=== PATIENT | female | born 1960 | race Caucasian/White ===

== ENCOUNTER 2017-03-02 12:19 | Observation (INO) | payer BC ==
[~2017-03-02] VITALS: Ht 157.5 cm; Wt 79.5 kg
[2017-03-02 12:20] VITALS: BP 136/85; PULSE 64; RESP 16; TEMP 98.4; O2SAT 97
[2017-03-02 13:00] LABS: AUTOMATED NEUTROPHIL # 2.8 TH/MM3 (1.8-7.7); BASOPHIL # 0.1 TH/MM3 (0-0.2); BASOPHIL % 1.3 % (0.0-2.0); EOSINOPHIL # 0.2 TH/MM3 (0-0.4); HEMATOCRIT 37.5 % (35.0-46.0); HEMO FLAGS DIFF FINAL; LYMPH % 40.8 % (9.0-44.0); LYMPHOCYTE # 2.6 TH/MM3 (1.0-4.8); MEAN CELL VOLUME 92.6 FL (80.0-100.0); MEAN CORPUSCULAR HEMOGLOBIN 31.8 PG (27.0-34.0); MEAN CORPUSCULAR HGB CONC 34.3 % (32.0-36.0); MONO % 9.9 % (0.0-8.0); PLATELET COUNT 311 TH/MM3 (150-450); RED BLOOD COUNT 4.05 MIL/MM3 (4.00-5.30); RED CELL DISTRIBUTION WIDTH 13.3 % (11.6-17.2); WHITE BLOOD COUNT 6.3 TH/MM3 (4.0-11.0)
--- NOTE | 2017-03-02 13:12 | RADRPT ---
EXAM DATE/TIME: 03/02/2017 12:58 [facility] COMPARISON: No previous studies available for comparison. INDICATIONS : Chest pains midsternal, with pressure and shortness of breath. MEDICAL HISTORY : None. SURGICAL HISTORY : None. ENCOUNTER: Initial ACUITY: 4 - 6 days PAIN SCORE: 6/10 LOCATION: Chest FINDINGS: PA and lateral views of the chest demonstrates a small focal infiltrate in the right middle lobe. Oth erwise, the lungs are clear. There are no effusions or pulmonary edema.. The cardiomediastinal conto urs are unremarkable. Osseous structures are intact. CONCLUSION: Focal small infiltrate in the right middle lobe. Scott Siddiqui MD on March 02, 2017 at 13:10 Board Certified Radiologist. This report was verified electronically.
[2017-03-02 13:30] LABS: ANION GAP 7 MEQ/L (5-15); BLOOD UREA NITROGEN 17 MG/DL (7-18); CHLORIDE 106 MEQ/L (98-107); GLOMERULAR FILTRATION RATE 76 ML/MIN (>89); POTASSIUM 4.1 MEQ/L (3.5-5.1); SODIUM (NA) 140 MEQ/L (136-145)
[2017-03-02 13:34] LABS: CREATINE KINASE 561 U/L (26-192)
[2017-03-02] MEDS ORDERED: PHEN-523 PO (13:40)
[2017-03-02] MEDS ORDERED: ASPIRIN 81 MG CHEW TAB CHEW ONE (13:45)
[2017-03-02 14:00] LABS: CKMB 3.5 NG/ML (0.5-3.6)
--- NOTE | 2017-03-02 14:29 | PD ---
HPI Chief Complaint: Cardiac Complaint Time Seen by Provider: 14:20 Travel History International Travel<30 days: No Contact w/Intl Traveler<30days: No Traveled to known affect area: No History of Present Illness HPI 57-year-old female with PMH of epilepsy presents to the ED for evaluation of 2 week history of episodic, intermittent chest pain. She states that the 3 episodes have occurred when she is exerting herself, such as walking on the treadmill. She describes the pain as sudden onset, sharp, rated 6/10 over the central left chest. She denies associated palpitations, shortness of breath, nausea, vomiting, diaphoresis. The pain lasts the duration of her exercise and then resolves spontaneously. She states that she is otherwise been feeling well. The patient denies familial history of FL. She smoked only a few years old she was in college. She had a stress test over 20 years ago. She is followed by Dr. Shepard. She states her last seizure was over 25 years ago. PFSH Past Medical History High Cholesterol: Yes Seizures: Yes Past Surgical History Other Surgery: Yes (SKIN GRAFT) Social History Alcohol Use: Yes (4 GLASSES WINE/WEEK) Tobacco Use: No Allergies-Medications (Allergen,Severity, Reaction): Coded Allergies: No Known Allergies (Unverified , 03/02/17) Reported Meds & Prescriptions Reported Meds & Active Scripts Active Reported Phenobarbital 30 Mg Tab 90 Mg PO HS Review of Systems Except as stated in HPI: all other systems reviewed are Neg Physical Exam Narrative GENERAL: Well-nourished, well-developed pleasant white female in no acute distress. SKIN: Focused skin assessment warm/dry. HEAD: Normocephalic. EYES: No scleral icterus. No injection or drainage. NECK: Supple, trachea midline. No JVD or lymphadenopathy. CARDIOVASCULAR: Regular rate and rhythm without murmurs, gallops, or rubs. CHEST: Nontender throughout without deformity or crepitus. RESPIRATORY: Breath sounds clear and equal bilaterally. No accessory muscle use. GASTROINTESTINAL: Abdomen soft, non-tender, nondistended. Active bowel sounds. MUSCULOSKELETAL: No cyanosis, or edema. BACK: Nontender without obvious deformity. No CVA tenderness. Data Data Last Documented VS Vital Signs Date Time Temp Pulse Resp B/P (MAP) Pulse Ox O2 Delivery O2 Flow Rate FiO2 03/02/17 13:39 Room Air 03/02/17 13:39 03/02/17 12:20 98.4 64 16 97 Orders Orders Electrocardiogram (03/02/17 12:39) Complete Blood Count With Diff (03/02/17 12:39) Basic Metabolic Panel (Bmp) (03/02/17 12:39) Ckmb (Isoenzyme) Profile (03/02/17 12:39) Troponin I (03/02/17 12:39) Iv Access Insert/Monitor (03/02/17 12:39) Ecg Monitoring (03/02/17 12:39) Oxygen Administration (03/02/17 12:39) Oximetry (03/02/17 12:39) Chest, Pa & Lat (03/02/17 12:39) CKMB (03/02/17 12:50) CKMB% (03/02/17 12:50) Aspirin Chew (Aspirin Chew) (03/02/17 13:45) Admit Order (Ed Use Only) (03/02/17 14:41) Labs Laboratory Tests Test 03/02/17 12:50 White Blood Count 6.3 TH/MM3 Red Blood Count 4.05 MIL/MM3 Hemoglobin 12.9 GM/DL Hematocrit 37.5 % Mean Corpuscular Volume 92.6 FL Mean Corpuscular Hemoglobin 31.8 PG Mean Corpuscular Hemoglobin Concent 34.3 % Red Cell Distribution Width 13.3 % Platelet Count 311 TH/MM3 Mean Platelet Volume 7.2 FL Neutrophils (%) (Auto) 45.0 % Lymphocytes (%) (Auto) 40.8 % Monocytes (%) (Auto) 9.9 % Eosinophils (%) (Auto) 3.0 % Basophils (%) (Auto) 1.3 % Neutrophils # (Auto) 2.8 TH/MM3 Lymphocytes # (Auto) 2.6 TH/MM3 Monocytes # (Auto) 0.6 TH/MM3 Eosinophils # (Auto) 0.2 TH/MM3 Basophils # (Auto) 0.1 TH/MM3 CBC Comment DIFF FINAL Differential Comment Blood Urea Nitrogen 17 MG/DL Creatinine 0.78 MG/DL Random Glucose 89 MG/DL Calcium Level 8.9 MG/DL Sodium Level 140 MEQ/L Potassium Level 4.1 MEQ/L Chloride Level 106 MEQ/L Carbon Dioxide Level 27.0 MEQ/L Anion Gap 7 MEQ/L Estimat Glomerular Filtration Rate 76 ML/MIN Total Creatine Kinase 561 U/L Creatine Kinase MB 3.5 NG/ML Creatine Kinase MB % 0.6 % Troponin I LESS THAN 0.02 NG/ML MDM Medical Decision Making Medical Screen Exam Complete: Yes Emergency Medical Condition: Yes Differential Diagnosis Angina versus musculoskeletal pain versus GERD versus ACS versus other Narrative Course 57-year-old female with PMH of epilepsy presents to the ED for evaluation of 2 week history of episodic, intermittent chest pain. She states that the 3 episodes have occurred when she is exerting herself, such as walking on the treadmill. She describes the pain as sudden onset, sharp, rated 6/10 over the central left chest. She denies associated palpitations, shortness of breath, nausea, vomiting, diaphoresis. The pain lasts the duration of her exercise and then resolves spontaneously. She states that she is otherwise been feeling well. The patient denies familial history of FL. She smoked only a few years old she was in college. She had a stress test over 20 years ago. She states her last seizure was over [address] Shepard. Vitals reviewed. Physical exam reveals a nontoxic-appearing white female in no acute distress. No appreciable M/R/G. Chest CT AB. Abdomen soft and nontender. No lower extremity edema. EKG rate 57, sinus bradycardia. OH interval 178, QRS 91, QTc 412 ms. Normal axis. No ST changes. Reviewed by Dr. Ledezma CXR:Small right infiltrate per radiology read. Cardiac enzymes negative 1 No concerning abnormalities in CBC or CMP. I doubt pneumonia in this patient with no cough, cold symptoms, fevers. I discussed the results of the workup with the patient. I recommended admission to the chest pain center for serial enzymes, EKGs and possible stress test. The patient is agreeable to this plan. Please see chest pain center notes for disposition. Paula Nguyen Mar 02, 2017 14:29
--- NOTE | 2017-03-02 16:48 | HHI.DCPOC ---
Discharge Care Plan Diagnosis: (1) Chest pain, atypical Goals to Promote Your Health * To prevent worsening of your condition and complications * To maintain your health at the optimal level Directions to Meet Your Goals Take your medications as prescribed Follow your dietary instruction Follow activity as directed Keep your appointments as scheduled Take your immunizations and boosters as scheduled If your symptoms worsen call your PCP, if no PCP go to Urgent Care Center or Emergency Room Smoking is Dangerous to Your Health. Avoid second hand smoke Call the 24-hour hour crisis hotline for domestic abuse at [facility] [place] Mar 02, 2017 16:48
--- NOTE | 2017-03-02 16:51 | MH ---
cc: ANTONIO YU MD DATE OF ADMISSION 03/02/2017 ADMISSION DIAGNOSIS Chest pain HISTORY OF PRESENT ILLNESS Mrs. Shearer is a delightful 57-year-old female who has no past medical history of any cardiac complaints. She has a history of a seizure disorder from teenage years and has not had a seizure in 25 years on phenobarbital. She is no other medications on a regular basis. About two weeks ago, she started back on exercise in a fitness program and did about an hour of vigorous exercises including treadmill and elliptical. She noticed an anterior somewhat left chest discomfort which felt like an ache or slight pressure. It persisted for hours beyond her exercise at that point. She did not notice it was tender. It did not hurt with a deep breath. She cannot tell if it was deep inside or on the surface. This went away. In the past two weeks, she has continued to do some exercise, especially just walking briskly at home. Twice she has had episodes of left-sided chest discomfort that began lasts for hours. The third one was this morning at about 05:30 when she walked and 10 minutes into her walk, she noticed this left side discomfort which then lasted for perhaps several hours. It went away on its own, but she feels slightly tight in her chest like she is anxious. She has not had any falls or injuries otherwise. She has not lifted any heavy weights. She has been a busy, active person most all of her life, but has been in and out of fitness type of things. She has history of borderline cholesterol. She said her blood pressure is generally on the low side and not high. She denies diabetes or cigarette smoking and there is no family history of ASHD. She has generally been a healthy person. She has recently come back from living in [place] with her for 17 years. They now live in [place]. She is followed by Dr. Lamonte Shepard, her primary doctor. At this point, she also has had some history of gastroesophageal reflux disease, but it does not feel like this. She is not sure what this is. She has not been sick in any way. PAST MEDICAL HISTORY 1. The seizure disorder with generalized seizures and has had three in her life but has not had one in 25 years on phenobarbital. 2. She has history of questionable borderline cholesterol, but apparently has never required medication treatment. PAST SURGICAL HISTORY Only surgical history of a skin graft. SOCIAL HISTORY She uses about four glasses of wine per week. She has never smoked, other than a little bit in college. ALLERGIES She has no known allergies. MEDICATIONS Only known medicine is phenobarbital 30 mg tablets 90 mg at bedtime. FAMILY HISTORY No family history of heart disease. REVIEW OF SYSTEMS: No history of HEENT problems. She has the history of seizure disorder, well treated. There has been no pulmonary symptoms. She has had no fever or cough. She has had no cardiac symptoms in the past. She has the history of intermittent gastroesophageal reflux disease in the past six months. This is not severe. She has had no other abdominal symptoms. She is postmenopausal. Her peripheral vascular system is negative as she has had no swelling or tenderness in her calves and no swelling. PHYSICAL EXAMINATION VITAL SIGNS: Normal on admission. Pulse 64. HEENT: Eyes are clear. Throat is clear. NECK: Supple. There are no carotid bruits. Neck vein is not distended. LUNGS: Clear to auscultation. CHEST: The chest wall exam including palpation does not elicit any significant point tenderness. CARDIAC: There are no murmurs, gallops or rubs. ABDOMEN: There is no epigastric tenderness of significance. There are no abdominal masses. Abdominal is exam basically negative with no bruits and bowel sounds are normal. EXTREMITIES: Femoral and peripheral pulses intact and there is no edema. CARDIOLOGY STUDIES Electrocardiogram normal. LABORATORY DATA Her troponin is less than 0.02. CPK 561. The MB was only 0.6%. White count was normal. There was no left shift. All other lab normal. IMAGING STUDIES Chest x-ray read a questionable small right middle lobe infiltrate. ASSESSMENT Her chest pain is very atypical as it lasts for hours, although there is no musculoskeletal tenderness that I can feel. She has very little in the way of any risk factors for heart disease. Her electrocardiogram and troponin were taken six hours after her symptoms and are then quite helpful. Chest x-ray shows questionable right middle lobe infiltrate. I looked at the PA and lateral on line and did not see anything specific, but it may require some followup x-ray or CT per Dr. Shepard, her primary doctor, as it is clearly not what may be causing her symptoms. I suspect her symptoms are musculoskeletal and perhaps the slight elevation of CPK that is musculoskeletal and skeletal muscle may be a tip off. PLAN Exercise tolerance test to be sure there is nothing unusual that could be causing this cardiac sol. She has such low risk factors that I think the likelihood of this being ischemic is quite low. There is no evidence for clots in her legs and her blood clot score would be extremely low. MD SHIELA Soto/ /3:55 PM /4:39 PM
--- NOTE | 2017-03-02 17:53 | TR ---
Date Performed: 03/02/2017 Time Performed: 16:02:18 DOCTOR: Elliot Samano DRUG LIST: CLINICAL HISTORY: REASON FOR TEST: Chest pain REASON FOR ENDING: OBSERVATION: CONCLUSION: Lexiscan stress test was performed under standard four minute protocol. Radionuclid e was injected one minute prior to ending the test. No electrocardiographic abormalities were present to suggest ischemia. Nuclear imaging and interpretation are pending. COMMENTS:
--- NOTE | 2017-03-03 16:25 | EKG ---
Date Performed: 03/02/2017 Time Performed: 12:41:51 PTAGE: 57 years EKG: SINUS BRADYCARDIA LOW QRS VOLTAGE IN PRECORDIAL LEADS BORDERLINE ECG NO PREVIOUS TRACING DOCTOR: Elliot Samano Interpretating Date/Time 03/03/2017 16:23:36
== END 2017-03-02 16:48 | disposition home or self-care (01) ==
LOC: NEPC 12:19 → NEDA 14:42
DX: R07.89 Other chest pain (principal); R91.8 Other nonspecific abnormal finding of lung field; E78.00 Pure hypercholesterolemia, unspecified; R06.09 Other forms of dyspnea
CPT/HCPCS: 71020; 80048; 82550; 82552; 84484; 85025; 93005; 93017; 99285; G0378